=== PATIENT | female | born 1965 | race Caucasian/White ===

== ENCOUNTER 2020-03-09 06:09 | Outpatient (REF) | payer BC, SELFPAY | END 2020-03-09 06:10 | disposition home or self-care (01) | LOC: HO.LAB 06:09 | PROVIDERS: Visit Provider Internal Medicine | DX: Z20.828 Contact with and (suspected) exposure to other viral communicable diseases (principal) | CPT/HCPCS: U0003 ==

== ENCOUNTER 2020-04-24 06:14 | Outpatient (REF) | payer BC, SELFPAY | END 2020-04-24 06:15 | disposition home or self-care (01) | LOC: HO.LAB 06:14 | PROVIDERS: PCP Family Medicine; Visit Provider Internal Medicine | DX: Z20.828 Contact with and (suspected) exposure to other viral communicable diseases (principal) | CPT/HCPCS: C9803; U0003 ==

== ENCOUNTER 2020-05-16 07:17 | Outpatient (REF) | payer BC, SELFPAY | END 2020-05-16 07:18 | disposition home or self-care (01) | LOC: HO.LAB 07:17 | PROVIDERS: Visit Provider Internal Medicine | DX: Z20.828 Contact with and (suspected) exposure to other viral communicable diseases (principal) | CPT/HCPCS: 36415; C9803; U0003 ==